=== PATIENT | female | born 1980 | race Caucasian/White ===

== ENCOUNTER 2018-05-10 11:19 | Emergency (ER) | payer OTHER ==
[2018-05-10 13:16] LABS: ADD MAN DIFF? NO
[2018-05-10] MEDS: SOD CHLORIDE 0.9% 1,000 ML IV (13:16)
[2018-05-10] MEDS: DIPHENHYDRAMINE 50 MG INJ IV (13:16)
[2018-05-10] MEDS: METOCLOPRAMIDE 10 MG INJ IV (13:16)
[2018-05-10 13:18] LABS: WHITE BLOOD COUNT 7.2 10^3/ul (4.8-10.8)
[2018-05-10 13:18] LABS: BASOPHIL # 0.1 10^3/ul (0.0-0.1); BASOPHILS % 0.7 % (0.0-2.0); EOSINOPHILS # 0.1 10^3/ul (0.0-0.5); EOSINOPHILS % 0.7 % (0.0-7.0); HEMATOCRIT 42.6 % (37.0-47.0); LYMPHOCYTES # 2.2 10^3/ul (0.8-2.9); LYMPHOCYTES % 31.1 % (15.0-51.0); MEAN CORPUSCULAR HEMOGLOBIN 32.4 pg (29.0-33.0); MEAN CORPUSCULAR HGB CONC 35.2 g/dl (32.0-37.0); MEAN PLATELET VOLUME 9.4 fl (7.4-10.4); MONOCYTE # 0.6 10^3/ul (0.3-0.9); MONOCYTES % 8.3 % (0.0-11.0); NEUTROPHIL # 4.3 10^3/ul (1.6-7.5); NEUTROPHILS % 58.9 % (39.0-77.0); PLATELET COUNT 285 10^3/UL (140-415); RED BLOOD COUNT 4.63 10^6/ul (4.20-5.40); RED CELL DISTRIBUTION WIDTH 11.9 % (11.5-14.5)
[2018-05-10 13:36] LABS: ANION GAP 15 (8-16); BLOOD UREA NITROGEN 14 mg/dl (7-20); CALCIUM 9.7 mg/dl (8.4-10.2); CARBON DIOXIDE 22 mmol/L (21-31); CHLORIDE 108 mmol/L (97-110); CREATININE 0.73 mg/dl (0.44-1.00); GLUCOSE 102 mg/dl (70-220); POTASSIUM 3.9 mmol/L (3.5-5.1); SODIUM 141 mmol/L (135-144)
[2018-05-10 13:37] LABS: INR 0.95; PROTIME 12.8 Sec (11.9-14.9)
[2018-05-10 13:38] LABS: PARTIAL THROMBOPLASTIN TIME 26.4 Sec (25.0-35.0)
[2018-05-10] MEDS: KETOROLAC 15 MG INJ IV (14:01)
[2018-05-10] MEDS: LORAZEPAM 2 MG INJ IV (14:07)
== END 2018-05-10 18:49 | disposition home or self-care (01) ==
LOC: E/R 11:19
DX: G44.009 Cluster headache syndrome, unspecified, not intractable (principal); R40.2142 Coma scale, eyes open, spontaneous, at arrival to emergency department; R40.2252 Coma scale, best verbal response, oriented, at arrival to emergency department; R40.2362 Coma scale, best motor response, obeys commands, at arrival to emergency department; R42 Dizziness and giddiness
CPT/HCPCS: 36415; 70551; 80048; 81025; 85025; 85610; 85730; 95819; 96361; 96374; 96375; 99285-25